=== PATIENT | female | born 1950 | race Caucasian/White ===

== ENCOUNTER 2025-01-24 12:32 | Inpatient (IN) | payer MEDICARE, OTHER ==
[~2025-01-24] VITALS: Ht 147.3 cm; Wt 115.1 kg
[2025-01-24 13:48] LABS: BASO # 0.0 10^3/uL (0.0-0.2); BASO % 0.2 % (0.0-1.0); EOS # 0.3 10^3/uL (0.0-0.5); EOS % 3.5 % (0.0-3.0); LYMPH # 1.1 10^3/uL (1.5-5.0); LYMPH % 12.2 % (24.0-44.0); MONO # 0.9 10^3/uL (0.0-0.8); MONO % 10.3 % (2.0-8.0); NEUTROPHILS # 6.6 10^3/uL (1.5-8.5); NEUTROPHILS % 73.6 % (36.0-66.0); PLATELET COUNT, AUTOMATED 246 10^3/uL (150-450)
[2025-01-24 14:37] LABS: CK-MB VALUE MASS < 1.0 NG/ML (<3.6); ETHYL ALCOHOL (ETHANOL) < 0.003 % (0.000-0.010)
[2025-01-24 14:39] LABS: ALT/SGPT 19 U/L (7.0-40); AST/SGOT 23 U/L (<34); CALCIUM LEVEL 10.3 MG/DL (8.3-10.6); CARBON DIOXIDE LEVEL 25 MMOL/L (20-31); CHLORIDE LEVEL 104 MMOL/L (98-107); CREATININE FOR GFR 1.20 MG/DL (0.55-1.30); GLOMERULAR FILTRATION RATE 46.9 (>39); POTASSIUM SERUM 4.8 MMOL/L (3.5-5.1); SODIUM LEVEL 142 MMOL/L (136-145)
[2025-01-24 14:44] LABS: CPK CREATINE PHOSPHOKINASE 36 U/L (34-145)
[2025-01-24] MEDS ORDERED: ISOVUE-370 76% 100 ML VIAL As Ordered ONE (14:48)
[2025-01-24 15:33] LABS: KETONE, URINE AUTO RFX TRACE mg/dL (NEGATIVE); RBC, URINE AUTO RFX 2 /HPF (0-3); SQUAM EPITHELIAL CELL UR AURFX 5 /HPF (0-6)
[2025-01-24 15:34] LABS: LEUKOCYTE ESTERASE UR AUTO RFX TRACE (NEGATIVE); NITRITE, URINE AUTO RFX POSITIVE (NEGATIVE); WBC, URINE AUTO RFX 19 /HPF (0-3)
[2025-01-24] MEDS: cefTRIAXone SOD 1 GM in DEXTROSE 5% (D5W) ADV/MINI-BAG 50 ML IV ONE (16:04)
[2025-01-24] MEDS ORDERED: MED REC IN PROGRESS XX SCH (18:05)
[2025-01-24] MEDS: SODIUM CHLORIDE 0.9% 1000 ML IV SCH (18:23)
[2025-01-24 19:11] LABS: MAGNESIUM LEVEL 2.0 MG/DL (1.8-2.4)
[2025-01-24 20:26] VITALS: BP 133/84; TEMP 97.9; O2SAT 99
[2025-01-25] MEDS: RAMELTEON 8 MG TAB PO PRN (01:24)
[2025-01-25 04:00] VITALS: BP 138/83; TEMP 97.3; O2SAT 95
[2025-01-25 05:45] LABS: BASO # 0.0 10^3/uL (0.0-0.2); BASO % 0.5 % (0.0-1.0); EOS # 0.4 10^3/uL (0.0-0.5); EOS % 5.5 % (0.0-3.0); LYMPH # 1.2 10^3/uL (1.5-5.0); LYMPH % 15.3 % (24.0-44.0); MONO # 1.0 10^3/uL (0.0-0.8); MONO % 12.9 % (2.0-8.0); NEUTROPHILS # 5.0 10^3/uL (1.5-8.5); NEUTROPHILS % 65.5 % (36.0-66.0); PLATELET COUNT, AUTOMATED 237 10^3/uL (150-450)
[2025-01-25 06:16] LABS: ALT/SGPT 14.0 U/L (7.0-40); AST/SGOT 14.0 U/L (<34); CALCIUM LEVEL 10.2 MG/DL (8.3-10.6); CARBON DIOXIDE LEVEL 25.0 MMOL/L (20-31); CHLORIDE LEVEL 107.0 MMOL/L (98-107); CREATININE FOR GFR 0.99 MG/DL (0.55-1.30); GLOMERULAR FILTRATION RATE 59.1 (>39); MAGNESIUM LEVEL 2.1 MG/DL (1.8-2.4); POTASSIUM SERUM 4.0 MMOL/L (3.5-5.1); SODIUM LEVEL 142.0 MMOL/L (136-145)
[2025-01-25] MEDS ORDERED: HOME MED LIST COMPLETE! XX SCH (07:45)
[2025-01-25] MEDS ORDERED: MED REC CURRENTLY UNOBTAINABLE XX SCH (07:50)
[2025-01-25] MEDS: ENOXAPARIN 30 MG/0.3 ML SYRINGE (J1650 PER 10MG) SC SCH (09:25)
[2025-01-25] MEDS: cefTRIAXone SOD 1 GM in DEXTROSE 5% (D5W) ADV/MINI-BAG 50 ML IV SCH (09:26)
[2025-01-25 12:26] VITALS: BP 150/76; TEMP 97.5; O2SAT 95
[2025-01-25 20:35] VITALS: BP 148/73; TEMP 97.5; O2SAT 94
[2025-01-25] MEDS: NYSTATIN 100,000 UNITS/GM TOPICAL PWD 15 GM TOP SCH (21:00)
[2025-01-25] MEDS: ACETAMINOPHEN 325 MG TAB PO PRN (23:43)
[2025-01-26 03:29] VITALS: BP 152/77; TEMP 97.3; O2SAT 94
[2025-01-26 04:00] VITALS: BP 152/77; TEMP 97.3; O2SAT 94
[2025-01-26 06:29] LABS: BASO # 0.0 10^3/uL (0.0-0.2); BASO % 0.5 % (0.0-1.0); EOS # 0.4 10^3/uL (0.0-0.5); EOS % 7.0 % (0.0-3.0); LYMPH # 1.5 10^3/uL (1.5-5.0); LYMPH % 23.9 % (24.0-44.0); MONO # 0.7 10^3/uL (0.0-0.8); MONO % 12.0 % (2.0-8.0); NEUTROPHILS # 3.5 10^3/uL (1.5-8.5); NEUTROPHILS % 56.3 % (36.0-66.0); PLATELET COUNT, AUTOMATED 230 10^3/uL (150-450)
[2025-01-26 06:56] LABS: ALT/SGPT 14.0 U/L (7.0-40); AST/SGOT 14.0 U/L (<34); CALCIUM LEVEL 9.3 MG/DL (8.3-10.6); CARBON DIOXIDE LEVEL 24.0 MMOL/L (20-31); CHLORIDE LEVEL 107.0 MMOL/L (98-107); CREATININE FOR GFR 1.11 MG/DL (0.55-1.30); GLOMERULAR FILTRATION RATE 51.5 (>39); MAGNESIUM LEVEL 2.0 MG/DL (1.8-2.4); POTASSIUM SERUM 4.2 MMOL/L (3.5-5.1); SODIUM LEVEL 141.0 MMOL/L (136-145)
[2025-01-26] MEDS: MEROPENEM IV SCH (08:53)
[2025-01-26] MEDS: NACL IV SCH (08:53)
[2025-01-26 11:47] VITALS: BP 152/77; TEMP 97.3; O2SAT 96
[2025-01-26 20:50] VITALS: BP 152/61; TEMP 97.3; O2SAT 96
[2025-01-27] MEDS ORDERED: BISACODYL 10 MG SUPP PR PRN (02:40)
[2025-01-27] MEDS: SENNOSIDES/DOCUSATE SODIUM 8.6 MG/50MG TAB PO SCH (02:45)
[2025-01-27 03:58] VITALS: BP 150/62; TEMP 97.3; O2SAT 95
[2025-01-27 06:09] LABS: BASO # 0.0 10^3/uL (0.0-0.2); BASO % 0.3 % (0.0-1.0); EOS # 0.4 10^3/uL (0.0-0.5); EOS % 5.2 % (0.0-3.0); LYMPH # 1.0 10^3/uL (1.5-5.0); LYMPH % 15.3 % (24.0-44.0); MONO # 0.7 10^3/uL (0.0-0.8); MONO % 10.1 % (2.0-8.0); NEUTROPHILS # 4.6 10^3/uL (1.5-8.5); NEUTROPHILS % 68.7 % (36.0-66.0); PLATELET COUNT, AUTOMATED 221 10^3/uL (150-450)
[2025-01-27 06:36] LABS: ALT/SGPT 15.0 U/L (7.0-40); AST/SGOT 15.0 U/L (<34); CALCIUM LEVEL 9.7 MG/DL (8.3-10.6); CARBON DIOXIDE LEVEL 27.0 MMOL/L (20-31); CHLORIDE LEVEL 106.0 MMOL/L (98-107); CREATININE FOR GFR 1.07 MG/DL (0.55-1.30); GLOMERULAR FILTRATION RATE 53.8 (>39); MAGNESIUM LEVEL 2.0 MG/DL (1.8-2.4); POTASSIUM SERUM 4.2 MMOL/L (3.5-5.1); SODIUM LEVEL 143.0 MMOL/L (136-145)
[2025-01-27] MEDS: MIRALAX *UNIT DOSE* 17 GM PACKET PO SCH (08:31)
[2025-01-27] MEDS: ERTAPENEM SODIUM 1 GM in NS MINI-BAG PLUS 50 ML IV SCH (08:31)
[2025-01-27 12:00] VITALS: BP 162/87; TEMP 97.3; O2SAT 99
[2025-01-27] MEDS ORDERED: ACETAMINOPHEN 325 MG TAB PO PRN (17:10)
[2025-01-27 20:00] VITALS: BP 161/68; TEMP 97.5; O2SAT 97
[2025-01-27] MEDS: ENOXAPARIN 60 MG/0.6 ML SYRINGE (J1650 PER 10MG) SC SCH (20:22)
[2025-01-28 03:53] VITALS: BP 138/68; TEMP 97.5; O2SAT 94
[2025-01-28] MEDS: NITROFURANTOIN 100 MG CAP PO SCH (08:14)
[2025-01-28] MEDS ORDERED: DOCU8.6T PO (10:12)
[2025-01-28] MEDS ORDERED: MIRA33506 PO (10:12)
[2025-01-28] MEDS ORDERED: MACR100C43 PO (10:12)
[2025-01-28] MEDS ORDERED: RISATAB3 PO (10:12)
== END 2025-01-28 12:29 | DRG 690 ==
LOC: M ED 12:32 → EEVIPCON 18:05 → M ED INP 18:05 → M MSPAV 20:25
PROVIDERS: ADMIT Student in an Organized Health Care Education/Training Program; ATTEND Internal Medicine
PROC: B246ZZZ Ultrasonography of Right and Left Heart (ICD-10-PCS; principal; 2025-01-26)
DX: N39.0 Urinary tract infection, site not specified (principal); Z68.43 Body mass index [BMI] 50.0-59.9, adult; F41.9 Anxiety disorder, unspecified; I10 Essential (primary) hypertension; E66.9 Obesity, unspecified; M16.0 Bilateral primary osteoarthritis of hip; M17.0 Bilateral primary osteoarthritis of knee; G47.33 Obstructive sleep apnea (adult) (pediatric); B96.20 Unspecified Escherichia coli [E. coli] as the cause of diseases classified elsewhere; K59.00 Constipation, unspecified; G89.29 Other chronic pain; Z88.6 Allergy status to analgesic agent; Z88.8 Allergy status to other drugs, medicaments and biological substances

== ENCOUNTER → 2025-04-16 | Outpatient (REF) | payer MEDICARE, OTHER ==
[~2025-04-16] MED LIST: DOCU8.6T PO; MACR100C43 PO; MIRA33506 PO; RISATAB3 PO
[2025-04-16 18:55] LABS: BASO # 0.0 10^3/uL (0.0-0.2); BASO % 0.3 % (0.0-1.0); EOS # 0.2 10^3/uL (0.0-0.5); EOS % 3.8 % (0.0-3.0); LYMPH # 1.0 10^3/uL (1.5-5.0); LYMPH % 17.9 % (24.0-44.0); MONO # 0.6 10^3/uL (0.0-0.8); MONO % 9.6 % (2.0-8.0); NEUTROPHILS # 4.0 10^3/uL (1.5-8.5); NEUTROPHILS % 68.1 % (36.0-66.0); PLATELET COUNT, AUTOMATED 242 10^3/uL (150-450)
[2025-04-16 18:58] LABS: ALT/SGPT 16.0 U/L (7.0-40); AST/SGOT 16.0 U/L (<34); CALCIUM LEVEL 9.7 MG/DL (8.3-10.6); CARBON DIOXIDE LEVEL 26.0 MMOL/L (20-31); CHLORIDE LEVEL 107.0 MMOL/L (98-107); CHOLESTEROL LEVEL 206.0 MG/DL (<200); CHOLESTEROL RISK RATIO 4.61 (<5); CREATININE FOR GFR 1.12 MG/DL (0.55-1.30); GLOMERULAR FILTRATION RATE 51.0 (>39); LDL CHOLESTEROL 144.2 MG/DL (<100); NON-HDL-C 161.4 MG/DL; POTASSIUM SERUM 4.4 MMOL/L (3.5-5.1); SODIUM LEVEL 140.0 MMOL/L (136-145); TRIGLYCERIDES LEVEL 86.0 MG/DL (<150)
[2025-04-16 19:00] LABS: FREE T4 1.37 NG/DL (0.89-1.76)
[2025-04-16 19:28] LABS: ESTIMATED AVERAGE GLUCOSE 100.0 MG/DL (60-110)
== END ==
LOC: M SFHCLERA 11:16
PROVIDERS: ATTEND Student in an Organized Health Care Education/Training Program
DX: Z00.00 Encounter for general adult medical examination without abnormal findings (principal); Z79.899 Other long term (current) drug therapy

== ENCOUNTER → 2025-04-16 | Outpatient (CLI) | payer MEDICARE, OTHER | LOC: M WUC 12:01 | PROVIDERS: ATTEND Student in an Organized Health Care Education/Training Program | DX: M25.551 Pain in right hip (principal); M16.11 Unilateral primary osteoarthritis, right hip; Z00.00 Encounter for general adult medical examination without abnormal findings; Z79.899 Other long term (current) drug therapy ==

== ENCOUNTER → 2025-04-23 | Outpatient (CLI) | payer MEDICARE, OTHER | LOC: M SOG 07:24 | PROVIDERS: ATTEND Neuromusculoskeletal Medicine, Sports Medicine | DX: Z53.9 Procedure and treatment not carried out, unspecified reason (principal) ==